=== PATIENT | male | born 1980 | race Caucasian/White ===

== ENCOUNTER → 2019-08-05 | Outpatient (CLI) | payer OTHER ==
--- NOTE | 2019-08-05 10:28 | MRI ---
EXAM DESCRIPTION: Cervical Spine: MRI. CLINICAL HISTORY: 39 years Male RADICULOPATHY COMPARISON: Radiographs of the cervical spine July 27. TECHNIQUE: Multiplanar, high-field MRI, multiple sequences, non-contrast Cervical spine. FINDINGS: C5-C6: Right posterior 3 mm disc protrusion abutting the right C6 nerve. Right uncinate spur. Moderate narrowing right neural foramen. Bilateral facets are unremarkable. Moderate narrowing left paracentral canal. Mild narrowing left neural foramen. C6-C7: Disc desiccation and moderate disc space loss. Mostly anterior with moderate endplate reactive changes. Grade 1 retrolisthesis 2.5 mm. Right posterior disc prior bulge displacing the right C7 nerve posterior. Right uncinate spur. Borderline right neural foraminal stenosis. Bilateral facets are negative. Right paracentral moderate canal narrowing. Left neural foramen patent. C2-C3: Minimal disc desiccation and posterior midline bulging. Facets and ligaments are negative. No canal or neural foraminal stenosis. Normal signal in the remaining discs with no bulging. Disc spaces preserved. Canal and neural foramina are patent. Facet joints unremarkable. Spinal alignment otherwise anatomic. No cord compression or cord edema. Atlantoaxial joint negative. Base of the cerebellar tonsils is at the level of the foramen magnum. Paravertebral soft tissues unremarkable. Vertebral bodies are not compressed at any level. Otherwise normal marrow signal in the remaining vertebral bodies and the posterior elements. IMPRESSION: 1. Right posterior C5-C6 disc protrusion abutting the right C6 nerve. Moderate narrowing right neural foramen. Correlate for right C6 radiculopathy. 2. Grade 1 anterolisthesis C6-C7 with right posterior disc osteophyte protrusion displacing the right C7 nerve posteriorly. Borderline right neural foraminal stenosis. Electronically signed by: Haja Denton MD 08/05/2019 10:27 AM CDT
== END ==
LOC: MRI 08:08
PROVIDERS: ATTEND Nurse Practitioner Family
DX: M54.12 Radiculopathy, cervical region (principal); M50.222 Other cervical disc displacement at C5-C6 level; M43.12 Spondylolisthesis, cervical region; M48.02 Spinal stenosis, cervical region